=== PATIENT | male | born 1995 | race Caucasian/White ===

== ENCOUNTER 2023-04-25 09:38 | Emergency (ER) | payer MEDICAID ==
[~2023-04-25] VITALS: Ht 175.3 cm; Wt 82.0 kg
[2023-04-25 10:00] VITALS: BP 154/88; PULSE 64; RESP 18; TEMP 98.2; O2SAT 99
[2023-04-25 10:37] LABS: BASOPHILS % 0.3 % (0.0-2.0); EOSINOPHILS % 0.8 % (0.0-5.0); HEMATOCRIT. 41.9 % (42.0-52.0); HEMOGLOBIN. 14.6 g/dL (14.0-18.0); LYMPHOCYTES % 30.5 % (20.0-50.0); MEAN CORPUSCULAR HEMOGLOBIN 31.1 pg (28.0-32.0); MEAN CORPUSCULAR HGB CONC 34.9 g/dL (31.0-37.0); NEUTROPHILS % 61.4 % (40.0-76.0); PLATELET 263 x1000/uL (130-400); RED BLOOD CELL COUNT 4.71 mill/uL (4.7-6.1); WHITE BLOOD COUNT 5.1 x1000/uL (4.5-11.0)
[2023-04-25 10:55] LABS: CHLORIDE 103 mEq/L (98-107); INDEX HEMOLYSI 1 (1-3); INDEX ICTERIC 1 (1-4); INDEX LIPEMIC 1 (1-3); POTASSIUM 3.8 mEq/L (3.5-5.1); SODIUM 137 mEq/L (136-145)
[2023-04-25 11:04] LABS: ALANINE AMINOTRANSFERASE 20 IU/L (13-61); ALBUMIN 4.5 g/dL (3.4-5.0); ASPARTATE AMINOTRANSFERASE 18 IU/L (15-37); BILIRUBIN TOTAL 0.5 mg/dL (0.1-1.0); CALCIUM 9.1 mg/dL (8.5-10.1); CARBON DIOXIDE 26 mEq/L (21-32); CREATININE 0.8 mg/dL (0.6-1.3); GLUCOSE 107 mg/dL (70-105); UREA NITROGEN BLOOD 13 mg/dL (7-21)
== END 2023-04-25 12:45 | disposition home or self-care (01) ==
LOC: ER 09:38
DX: R42 Dizziness and giddiness (principal); I10 Essential (primary) hypertension
CPT/HCPCS: 36415; 80053; 85025; 99283